=== PATIENT | male | born 1960 | race Asian ===

== ENCOUNTER 2016-06-10 00:14 | Emergency (ER) | payer BC ==
[~2016-06-10] VITALS: Ht 170.2 cm; Wt 75.0 kg
[2016-06-10 00:19] VITALS: Ht 170.2 cm; Wt 75.0 kg
--- NOTE | 2016-06-10 01:24 | ERD ---
ER Documentation Chief Complaint Date/Time DATE: 06/10/16 TIME: 00:59 Chief Complaint NOSE BLEED SINCE SAT, OFF & ON, NO BLOOD THINNER HPI This is a 56-year-old male who presents to the emergency department with epistaxis that started 2 days ago. Patient was blowing his nose when it started to bleed mildly on Thursday. Bleeding lasted a few minutes and went away. Bilateral nose bleeding returned this evening. Patient states there was continuous bleeding from the nose that lasted for 30 minutes. Patient denies trauma. Patient is not on any blood thinning medication. Denies headache, fever , eye pain, ear pain, sore throat, abdominal pain, nausea, vomiting. ROS All systems reviewed and are negative except as per history of present illness. Allergies Allergies: Coded Allergies: amoxicillin (Verified Allergy, Intermediate, rash, 06/10/16) PMhx/Soc History of Surgery: Yes (l arm fx with metal ethel, prostatectomy) Anesthesia Reaction: No Hx Neurological Disorder: No Hx Respiratory Disorders: No Hx Cardiac Disorders: Yes (htn) Hx Psychiatric Problems: No Hx Miscellaneous Medical Probl: Yes (dm2) Hx Alcohol Use: No Hx Substance Use: No Hx Tobacco Use: No FmHx Family History: coronary disease, diabetes, other Physical Exam Vitals Vital Signs Date Time Temp Pulse Resp B/P Pulse Ox O2 Delivery O2 Flow Rate FiO2 06/10/16 00:19 97.0 91 20 166/81 96 Physical Exam GENERAL: The patient is well developed and appropriate for usual state of health, in no apparent distress, currently wearing a nose clamp, HEENT: Atraumatic. Ears: Normal tympanic membrane, no erythema or bulging. No ear canal swelling. No ear discharge. Nose: Mild erythema to bilateral nasal turbinates, no swelling. Not actively bleeding, Normal nasal discharge. Throat: oropharynx clear. No tonsillar swelling or tonsillar exudates. No lymphadenopathy. CHEST: Clear to auscultation bilaterally. There are no rales, wheezes or rhonchi. HEART: Regular rate and rhythm. No murmurs, clicks, rubs or gallops. No S3 or S4. ABDOMEN: Soft, nontender and nondistended. Good bowel sounds. No rebound or guarding. No gross peritonitis. No gross organomegaly or masses. No Slade sign or McBurney point tenderness. BACK: No midline or flank tenderness. EXTREMITIES: Equal pulses bilaterally. There is no peripheral clubbing, cyanosis or edema. No focal swelling or erythema. Full range of motion. Grossly neurovascularly intact. NEURO: Alert and oriented. Cranial nerves 2-12 intact. Motor strength in all 4 extremities with 5/5 strength. Sensation grossly intact. Normal speech and gait. SKIN: There is no apparent rash or petechia. The skin is warm and dry. HEMATOLOGIC AND LYMPHATIC: There is no evidence of excessive bruising or lymphedema. No gross cervical, axillary, or inguinal lymphadenopathy. Procedures/MDM Medical Decision Making: This is a 56-year-old male who presents to emergency department with epistaxis on and off since Thursday. On physical exam, the nasal turbinates are dry with mild erythema. The patient was not actively bleeding during physical exam. The patient's symptoms are likely due to epistaxis secondary to allergic rhinitis. Patient denies any trauma. I do not feel that a radiology exam is necessary at this time. Patient is hemodynamically stable. There are no coagulopathies present as there is no ecchymosis. Patient denies taking anticoagulation medication. Patient should return to the emergency room with worsening bleeding, pain, fever , and or any other emergent conditions. If the epistaxis continues, the patient is advised to follow-up with primary care doctor in 1-2 days for a referral to a ear, nose and throat specialist. Patient was given for Flonase and Zyrtec. Departure Diagnosis: Primary Impression: Epistaxis Condition: Stable Patient Instructions: Epistaxis (Adult) Additional Instructions: Patient should return to the emergency room with worsening bleeding, pain, fever , and or any other emergent conditions. If the epistaxis continues, the patient is advised to follow-up with primary care doctor in 1-2 days for a referral to a ear, nose and throat specialist. PAUL RODAS NP Jun 10, 2016 01:23
[2016-06-10] MEDS ORDERED: FLUT9.9S NASAL (01:27)
[2016-06-10] MEDS ORDERED: CETI10CA PO (01:27)
== END 2016-06-10 01:42 | disposition home or self-care (01) ==
LOC: FTE 00:14
DX: R04.0 Epistaxis (principal); I10 Essential (primary) hypertension; E11.9 Type 2 diabetes mellitus without complications
CPT/HCPCS: 99283

== ENCOUNTER 2017-12-09 22:29 | Emergency (ER) | END 2017-12-10 03:43 | disposition home or self-care (01) ==